=== PATIENT | male | born 1950 | race Hispanic/Latino ===

== ENCOUNTER 2024-01-28 00:04 | Emergency (ER) | payer MEDICARE ==
[~2024-01-28] VITALS: Ht 167.6 cm; Wt 80.3 kg
[2024-01-28 00:35] VITALS: PULSE 82; RESP 17; TEMP 98.8; O2SAT 99
[2024-01-28] MEDS ORDERED: MEDROL4 M2 PO (00:43)
[2024-01-28] MEDS: DEXAMETHASONE SOD PHOS 10 MG/1 ML VIAL IM ONE (00:50)
== END 2024-01-28 01:09 | disposition home or self-care (01) ==
LOC: ER 00:09
DX: M54.32 Sciatica, left side (principal); I10 Essential (primary) hypertension
CPT/HCPCS: 99282; J1100